=== PATIENT | male | born 1960 | race Caucasian/White ===

== ENCOUNTER → 2021-06-12 | Outpatient (CLI) | payer OTHER ==
[~2021-06-12] MED LIST: ASPI81EC PO; NEBI5 PO
== END | disposition home or self-care (01) ==
LOC: LAB SHORT 08:43 → LAB 08:43
DX: D22.62 Melanocytic nevi of left upper limb, including shoulder (principal); L57.0 Actinic keratosis
CPT/HCPCS: 88305

== ENCOUNTER 2023-02-21 05:31 | Day surgery (SDC) | payer OTHER ==
[~2023-02-21] VITALS: Ht 177.8 cm; Wt 84.0 kg
[2023-02-21] MEDS ORDERED: ELIQUIS5 M2 PO (06:11)
[2023-02-21] MEDS ORDERED: ATEN25 PO (06:12)
--- NOTE | 2023-02-21 08:37 | NUR ---
PATIENT TOLERATED JERRY AND CARDIOVERSION PROCEDURE WELL. PATIENT DISCHARGED AT THIS TIME. PATIENT DISCHARGE INSTRUCTIONS REVIEWED WITH PATIENT AND SPOUSE. EKG AND PACEMAKER CHECK PERFORMED AFTER PROCEDURE. VSS. PIV REMOVED WITHOUT DIFFICULTY, CATHETER INTACT. AFTER PROCEDURE PATIENT TOLERATING PO WATER INTAKE WELL. PATIENT ABLE TO AMBULATE TO WHEELCHAIR WITHOUT DIFFICULTY.
== END 2023-02-21 08:48 | disposition home or self-care (01) ==
LOC: MHTC 05:31
DX: I48.19 Other persistent atrial fibrillation (principal); I10 Essential (primary) hypertension; Z95.0 Presence of cardiac pacemaker; Z79.01 Long term (current) use of anticoagulants
CPT/HCPCS: 92960; 93005; 93010; 93312; 93325; A9270; J2001; J2704; J7030

== ENCOUNTER 2024-12-23 03:35 | Observation (INO) | payer OTHER ==
[~2024-12-23] VITALS: Ht 177.8 cm; Wt 89.2 kg
[~2024-12-23 03:35] MED LIST changes: +ATEN25 PO; +ELIQUIS5 M2 PO
[2024-12-23 03:56] LABS: BASOPHILS ABSOLUTE AUTO 0.09 K/mm3 (0.00-0.23); BASOPHILS PERCENT AUTO 1 % (0-2); EOSINOPHILS PERCENT AUTO 8 % (0-6); Hematocrit 46.3 % (37.0-53.0); Hemoglobin 15.5 g/dL (13.5-17.5); IMMATURE GRAN ABSOLUTE AUTO 0.04 K/mm3 (0.00-0.10); IMMATURE GRAN PERCENT AUTO 0 % (0-1); LYMPHOCYTES ABSOLUTE AUTO 2.18 K/mm3 (0.84-5.20); LYMPHOCYTES PERCENT AUTO 24 % (21-46); MONOCYTES ABSOLUTE AUTO 0.63 K/mm3 (0.16-1.47); MONOCYTES PERCENT AUTO 7 % (4-13); Mean Corpuscular HGB 30.7 pg (26.0-34.0); Mean Corpuscular HGB Conc 33.5 g/dL (31.5-36.5); Mean Corpuscular Volume 92 fL (80-100); Mean Platelet Volume 11.3 fL (9.1-12.4); NEUTROPHILS ABSOLUTE AUTO 5.29 K/mm3 (1.96-9.15); NEUTROPHILS PERCENT AUTO 59 % (41-73); Platelet Count 120 K/mm3 (150-400); RDW Coefficient Variation 12.7 % (11.7-14.2); RDW Standard Deviation 42.9 fL (35.1-46.3); Red Blood Cell Count 5.05 M/mm3 (4.30-5.90); White Blood Cell Count 8.93 K/mm3 (4.00-11.30)
[2024-12-23 04:11] LABS: Alanine Aminotransfer (ALT/SGP 24 U/L (12-78); Albumin, Blood 3.8 g/dL (3.4-5.0); Albumin/Globulin Ratio 1.2 (0.8-1.8); Alk Phos 61 U/L (50-136); Anion Gap 15 mmol/L (3-11); Aspartate Aminotrans (AST/SGOT 18 U/L (12-37); Bilirubin, Total 0.4 mg/dL (0.1-1.0); Blood Urea Nitrogen 21 mg/dL (8-24); Bun/Creatinine Ratio 15.2 (12.0-20.0); CO2, Blood 18 mmol/L (21-32); Chloride, Blood 112 mmol/L (98-108); Creatinine, Blood 1.38 mg/dL (0.60-1.20); Ethanol (Alcohol), Blood, Med <3 mg/dL; Globulin, Blood 3.1 g/dL (2.2-4.0); Glomerular Filtration Rate 57 (60-); Glucose, Blood 151 mg/dL (70-99); Potassium, Blood 4.6 mmol/L (3.5-5.5); Sodium, Blood 140 mmol/L (136-145); Total Protein, Blood 6.9 g/dL (6.4-8.2)
[2024-12-23] MEDS ORDERED: NS 1,000 ML IV SCH (05:10)
[2024-12-23] MEDS ORDERED: NS 1,000 ML IV ONE (05:25)
[2024-12-23] MEDS ORDERED: Ondansetron HCl 2 MG / ML 2ML Vial IV PRN (05:25)
[2024-12-23] MEDS ORDERED: FLU VACC TS2024-25(6MOS UP)/PF 45 MCG/0.5 ML SYRINGE IM ONE (05:25)
[2024-12-23 05:43] LABS: Magnesium, Blood 2.5 mg/dL (1.6-2.4)
[2024-12-23] MEDS ORDERED: Atenolol 25 MG Tab PO SCH (09:00)
[2024-12-23] MEDS ORDERED: Apixaban 5 MG Tab PO SCH (09:00)
[2024-12-23] MEDS ORDERED: Enoxaparin 40 MG/0.4 ML SYR SC SCH (09:00)
[2024-12-23 13:18] LABS: Source, Urine Voided
[2024-12-23 13:27] VITALS: BP 139/76
[2024-12-23 13:40] LABS: Appearance, Urine Clear (Clear); Bilirubin, Urine Neg (Neg); Blood, Urine Neg (Neg); Color, Urine Yellow (P-Yellow); Glucose Qualitative, Urine Neg (Neg); Ketones, Urine Neg (Neg); Leukocyte Esterase, Urine Neg (Neg); Nitrite, Urine Neg (Neg); Protein, Urine Neg (Neg); Urobilinogen, Urine NORM (Normal); pH, Urine 6.5 (5.0-8.0)
[2024-12-23 14:27] LABS: U Amphetamine Screen Not Detected; U Barbituate Screen Not Detected; U Benzodiazapine Screen Not Detected; U Buprenorphine Screen Not Detected; U Cannabinoids Screen Not Detected; U Cocaine Screen Not Detected; U Methadone Screen Not Detected; U Methamphetamine Screen Not Detected; U Opiates Screen Not Detected; U Oxycodone Screen Not Detected; U Phencyclidine Screen Not Detected
[2024-12-23] MEDS ORDERED: Regadenoson 0.4 MG/5 ML SYRINGE ONE (14:39)
--- NOTE | 2024-12-23 14:59 | NUR ---
NURSING PCU DAYSHIFT: Assumed care of pt at approx 1315. Arrived from ER via segun slade to unit bed w/o difficulty. Denies any pain/discomfort at rest. Skin intact w/no breakdown noted. Tele in place, NSR w/first degree and BBB, pacemaker, no c/o CP/pressure, SBP 139 at arrival, no noted edema. L/S cta t/o, O2 sat upper 90's on RA, denies dyspnea, no noted cough. Abd SNT, BT+, voiding w/o difficulty. PIV x1, s/l. No s/s of acute distress. PMD at bedside shortly after arrival to unit, new d/o received. Plan of care discussed w/pt and family, questions answered. Pt currently in HC having Lexiscan portion of stress test completed, awaiting return to room.
--- NOTE | 2024-12-23 17:33 | NUR ---
NURSING PCU DAYSHIFT SUMMARY: No significant changes since arrival to unit. Stress portion of stress test completed, awaiting results. Several family members at bedside, patient and family very pleasant and agreeable to plan of care. No s/s of seizure activity since arrival, no respiratory or cardiac changes noted. Troponin levels continue to trend up, PMD notified. Plan for NPO at midnight for resting portion of stress test in a.m. Cont to monitor until rpt given to accepting RN.
--- NOTE | 2024-12-23 18:02 | NUR ---
ASSUMING CARE OF PT AT THIS TIME. AT BEDSIDE FOR SUPPORT. PT DENIES ANY NEEDS AND HAS NO COMPLAINTS. CALL LIGHT WITHIN REACH.
[2024-12-23 19:36] VITALS: BP 136/73
--- NOTE | 2024-12-23 22:57 | NUR ---
UPDATE LAB CALLED WITH CRITICAL VALUE. TROPONIN OF 193. PROVIDER CALLED, ORDERD PLACED FOR REPAT TROP FOR 12/24. PT ALSO WITH QUESTIONS ABOUT HOME MEDICATION ATENOLOL. PT TAKES 25MG BID AND ITS SCHEDULED FOR ONCE DAILY HERE. PROVIDER WANTS TO KEEP ONCE DAILY FOR NOW. PT NOTIFIED OF PLAN.
[2024-12-23 23:38] VITALS: BP 132/76
[2024-12-24 03:08] VITALS: BP 126/75
[2024-12-24 04:38] LABS: BASOPHILS ABSOLUTE AUTO 0.06 K/mm3 (0.00-0.23); BASOPHILS PERCENT AUTO 1 % (0-2); EOSINOPHILS ABSOLUTE AUTO 0.41 K/mm3 (0.00-0.68); EOSINOPHILS PERCENT AUTO 4 % (0-6); Hematocrit 42.9 % (37.0-53.0); Hemoglobin 14.5 g/dL (13.5-17.5); IMMATURE GRAN ABSOLUTE AUTO 0.03 K/mm3 (0.00-0.10); IMMATURE GRAN PERCENT AUTO 0 % (0-1); LYMPHOCYTES ABSOLUTE AUTO 1.42 K/mm3 (0.84-5.20); LYMPHOCYTES PERCENT AUTO 15 % (21-46); MONOCYTES ABSOLUTE AUTO 0.87 K/mm3 (0.16-1.47); MONOCYTES PERCENT AUTO 9 % (4-13); Mean Corpuscular HGB 30.4 pg (26.0-34.0); Mean Corpuscular HGB Conc 33.8 g/dL (31.5-36.5); Mean Corpuscular Volume 90 fL (80-100); Mean Platelet Volume 11.3 fL (9.1-12.4); NEUTROPHILS ABSOLUTE AUTO 6.47 K/mm3 (1.96-9.15); NEUTROPHILS PERCENT AUTO 70 % (41-73); Platelet Count 110 K/mm3 (150-400); RDW Coefficient Variation 12.9 % (11.7-14.2); RDW Standard Deviation 42.5 fL (35.1-46.3); Red Blood Cell Count 4.77 M/mm3 (4.30-5.90); White Blood Cell Count 9.26 K/mm3 (4.00-11.30)
[2024-12-24 04:59] LABS: Albumin, Blood 3.5 g/dL (3.4-5.0); Anion Gap 9 mmol/L (3-11); Blood Urea Nitrogen 19 mg/dL (8-24); Bun/Creatinine Ratio 16.5 (12.0-20.0); CO2, Blood 24 mmol/L (21-32); Calcium, Blood 9.1 mg/dL (8.5-10.1); Chloride, Blood 114 mmol/L (98-108); Creatinine, Blood 1.15 mg/dL (0.60-1.20); Glomerular Filtration Rate 72 (60-); Glucose, Blood 92 mg/dL (70-99); Phosphorus, Blood 3.1 mg/dL (2.5-4.9); Potassium, Blood 3.8 mmol/L (3.5-5.5); Sodium, Blood 143 mmol/L (136-145)
--- NOTE | 2024-12-24 05:47 | NUR ---
SHIFT SUMMARRY PT A&O X4, CALM, COOPERATIVE TO CARE. HR IN THE 60'S, SR WITH PACED BEATS, DENIES CP/PRESSURE, NUMB/TINGLING, SBP STABLE. O2 >92% ON RA, DENIES SOB, BREATHING EVEN AND UNLABORED. PT NPO SINCE MIDNIGHT FOR SECOND PORTION OF STRESS TEST ON 10/23. TRENDING TROPONINS, LAST TROPININ TRENDING DOWN. PT DENIES ANY QUESTIONS OR COCERNS AT THIS TIME. WILL MONITOR PT AND REPORT TO DAY SHIFT RN.
[2024-12-24] MEDS ORDERED: Pantoprazole Sodium 40 MG Tab PO SCH (06:00)
[2024-12-24 08:42] VITALS: BP 126/72
[2024-12-24] MEDS ORDERED: LevETIRAcetam 500 MG Tab PO SCH (09:00)
[2024-12-24] MEDS ORDERED: ASPI81CH PO (12:50)
--- NOTE | 2024-12-24 13:29 | NUR ---
DC TO HOME: PT DISCHARGED TO HOME IN NO ACUTE STRESS. IVS WERE REMOVED WITH CATHETER INTACT. DC PAPER WORK WAS GONE OVER WITH PT. ALL QUESTIONS AND CONCERNS WERE ADDRESSED. PT HAS NO FURTHER QUESTIONS OR CONCERS. PT DC'D VIA WHEEL CHAIR BY INDU.
== END 2024-12-24 13:30 | disposition home or self-care (01) ==
LOC: ER 03:35 → ERHOLD 03:36 → PCU 11:28
PROVIDERS: Emergency Medicine; Family Medicine; ADMIT Internal Medicine
DX: R56.9 Unspecified convulsions (principal); R79.89 Other specified abnormal findings of blood chemistry; E87.20 Acidosis, unspecified; I25.10 Atherosclerotic heart disease of native coronary artery without angina pectoris; I48.0 Paroxysmal atrial fibrillation; I10 Essential (primary) hypertension; Z95.2 Presence of prosthetic heart valve; Z95.0 Presence of cardiac pacemaker; Z79.01 Long term (current) use of anticoagulants; Z79.899 Other long term (current) drug therapy; Z91.040 Latex allergy status
CPT/HCPCS: 36415; 70450; 71045; 78452; 80053; 80069; 80320; 81003; 83605; 83735; 83880; 84484; 85025; 93005; 93010; 93017; 96360; 99285-25; A9270; A9500; G0378; J2785; J7030

== ENCOUNTER → 2025-05-27 | Outpatient (CLI) | payer OTHER ==
[~2025-05-27] MED LIST changes: +ASPI81CH PO
[2025-05-27 20:18] LABS: Thyroid Stimulating Hormone 5.08 uIU/mL (0.360-4.800)
== END ==
LOC: LAB SHORT 19:34 → LAB 19:34
PROVIDERS: Nurse Practitioner Family
DX: R00.1 Bradycardia, unspecified (principal); I48.91 Unspecified atrial fibrillation
CPT/HCPCS: 83880; 84439; 84443; 84481